=== PATIENT | female | born 1965 | race Caucasian/White ===

== ENCOUNTER 2019-01-12 18:45 | Inpatient (IN) | payer MEDICAID, MEDICARE ==
[~2019-01-12] VITALS: Ht 175.3 cm; Wt 96.4 kg
[2019-01-12] MEDS ORDERED: SODIUM CHLORIDE 0.9% 1,000 ML IV ONE (19:00)
[2019-01-12] MEDS ORDERED: MORPHINE SULFATE 4 MG/ML SYR/VIAL IV ONE (19:15)
[2019-01-12] MEDS ORDERED: ONDANSETRON HCL 4 MG/2 ML VIAL IV ONE (19:15)
[2019-01-12 19:17] LABS: Basophils # (auto) 0.1 uL; Basophils % (auto) 1.3 % (0.0-2.0); Eosinophils # (auto) 0.2 uL; Eosinophils % (auto) 2.3 % (0.0-7.0); Hematocrit 40.6 % (36.0-46.0); Hemoglobin 13.8 g/dL (12.2-16.2); Lymphocytes # (auto) 2.6 uL; Lymphocytes % (auto) 25.5 % (10.0-50.0); Mean Corpuscular Hgb Conc. 33.9 g/dL (32.0-36.0); Mean Corpuscular Volume 100.2 fL (80.0-100.0); Monocytes # (auto) 0.9 uL; Monocytes % (auto) 8.4 % (0.0-12.0); Neutrophils # (auto) 6.5 uL; Neutrophils % (auto) 62.5 % (37.0-80.0); Nucleated Red Blood Cells % 0.1 %; Platelet Count (auto) 233 10^3/uL (140-450); Red Blood Cells 4.05 10^6/uL (4.0-5.20); Red Cell Distribution Width 14.1 % (11.8-14.3); White Blood Cell 10.3 10^3/uL (4.4-10.8)
[2019-01-12 19:37] LABS: Calcium 9.1 mg/dL (8.5-10.1); Potassium 3.2 mmol/L (3.5-5.1)
[2019-01-12 19:39] LABS: BUN/Creatinine Ratio 15.3
[2019-01-12 19:42] LABS: Bilirubin, Total 0.4 mg/dL (0.2-1.0); Total Protein 7.5 g/dL (6.4-8.2)
[2019-01-12] MEDS ORDERED: HYDROmorphone HCL 2 MG/ML VL IV ONE ×2 (20:00→21:30)
[2019-01-12] MEDS ORDERED: HYDROcodone-ACET 5/325MG TAB PO PRN (23:15)
[2019-01-12] MEDS ORDERED: ACETAMINOPHEN 500 MG TAB PO PRN (23:15)
[2019-01-12] MEDS ORDERED: DOCUSATE SOD 100 MG CAP PO PRN (23:15)
[2019-01-12] MEDS: SODIUM CHLORIDE 0.9% 1,000 ML IV SCH (23:15)
[2019-01-12] MEDS ORDERED: TEMAZEPAM 15 MG CAP PO PRN (23:15)
[2019-01-12 23:53] LABS: Basophils # (auto) 0.1 uL; Basophils % (auto) 0.6 % (0.0-2.0); Eosinophils # (auto) 0 uL; Eosinophils % (auto) 0.3 % (0.0-7.0); Hematocrit 40.6 % (36.0-46.0); Hemoglobin 13.6 g/dL (12.2-16.2); Lymphocytes # (auto) 1.1 uL; Lymphocytes % (auto) 9.5 % (10.0-50.0); Mean Corpuscular Hemoglobin 33.1 pg (28.0-32.0); Mean Corpuscular Hgb Conc. 33.4 g/dL (32.0-36.0); Mean Corpuscular Volume 99.3 fL (80.0-100.0); Monocytes # (auto) 0.5 uL; Monocytes % (auto) 4.5 % (0.0-12.0); Neutrophils # (auto) 9.6 uL; Neutrophils % (auto) 85.1 % (37.0-80.0); Platelet Count (auto) 230 10^3/uL (140-450); Red Blood Cells 4.09 10^6/uL (4.0-5.20); Red Cell Distribution Width 14.4 % (11.8-14.3); White Blood Cell 11.3 10^3/uL (4.4-10.8)
[2019-01-13] VITALS (7 sets, daily range): BP systolic 109–132; BP diastolic 51–80
[2019-01-13 00:07] LABS: Anion Gap 7 (5-15); Carbon Dioxide 25 mmol/L (21-32); Chloride 108 mmol/L (98-107); Potassium 3.8 mmol/L (3.5-5.1); Sodium 140 mmol/L (136-145)
[2019-01-13 00:08] LABS: BUN/Creatinine Ratio 18.2; Blood Urea Nitrogen 18 mg/dL (7-18); Calcium 9.8 mg/dL (8.5-10.1); GFR African American 75 mL/min; GFR Non-African American 62 mL/min; Glucose 148 mg/dL (74-106)
--- NOTE | 2019-01-13 00:49 | NUR ---
RECEIVED PT TO RM 294B, ORIENTED TO ROOM AND ROUTINES, DISCUSSED PLAN OF CARE, PT AGREEABLE, NO COMPLAINTS VOICED AT THIS TIME, ADMISSION ASSESSMENT DONE, 4 P'S ADDRESSED, BED IN LOW POSITION, SR X 2 UP, CALL LIGHT WITHIN REACH, NO ACUTE DISTRESS NOTED.
[2019-01-13] MEDS: HYDROmorphone HCL 2 MG/ML VL IV PRN ×4 (03:07→22:32)
--- NOTE | 2019-01-13 07:30 | NUR ---
Opening Shift Note Assuming care of patient at this time. Patient is awake and alert. Patient denies pain at this time. Patient shows no signs or symptoms of distress at this time. Bed is locked and lowered with side rails up x2. Instructed patient on the plan of care for today and to call for assistance. Call light within reach. Will continue to round hourly and as needed.
--- NOTE | 2019-01-13 07:33 | NUR ---
PT RESTING IN BED, NO COMPLAINTS VOICED, NO ACUTE DISTRESS NOTED, BED IN LOW POSITION, SR X 2 UP, REPORT GIVEN TO MATHEUS VIDALES.
--- NOTE | 2019-01-13 08:20 | NUR ---
Call to dietary Call to dietary at this time. Patient is requesting a yogurt. Dietary will send up yogurt for patient.
--- NOTE | 2019-01-13 08:20 | NUR ---
Headache Patient is complaining of a headache at this time. Patient states that he does not want to take [place] because she has a tendency to become addicted. Will administer Tylenol as ordered.
[2019-01-13] MEDS: PANTOPRAZOLE 40 MG TAB PO SCH (08:26)
--- NOTE | 2019-01-13 08:45 | NUR ---
Patient complaining of pain Patient is complaining of pain at this time. Informed patient that her pain medication, dilaudid, is not due. Educated patient on frequency of pain medication ordered. Patient verbalized understanding Will administer per doctor's orders.
[2019-01-13] MEDS: ONDANSETRON HCL 4 MG/2 ML VIAL IV PRN ×3 (10:03→22:33)
--- NOTE | 2019-01-13 11:11 | NUR ---
Rounds Patient is resting comfortably in bed with eyes closed. Medication for both pain and nausea appear to have resolved patient's symptoms. at bedside.
[2019-01-13] MEDS: SODIUM CHLORIDE 0.9% 1,000 ML IV SCH (12:24)
--- NOTE | 2019-01-13 13:19 | NUR ---
Re: Urology Consult Dr. Tesfaye discussing plan of care with this RN. Patient can be discharged and taken care of electively. Patient is clear for discharge.
--- NOTE | 2019-01-13 15:40 | NUR ---
at bedside Dr. Ham at bedside discussing plan of care with patient and family.
[2019-01-13] MEDS ORDERED: cefTRIAXone 1GM/50ML D5W 50 ML IV ONE (15:45)
[2019-01-13] MEDS ORDERED: LOSA-39 PO (17:41)
[2019-01-13] MEDS ORDERED: HYDR25TA4 PO (17:41)
[2019-01-13] MEDS ORDERED: AML5T PO (17:41)
[2019-01-13] MEDS ORDERED: ASPI-404 PO (17:41)
--- NOTE | 2019-01-13 18:45 | NUR ---
Closing Shift Note Patient resting in bed with her eyes closed. Patient shows no signs or symptoms of distress. Patient does not appear to be in any pain. Will endorse care to the sr community manager RN.
--- NOTE | 2019-01-13 19:25 | NUR ---
Opening Shift Note Assuming care of patient at this time. Patient is awake and alert, resting in bed comfortably. Patient denies pain at this time. Patient shows no signs or symptoms of distress at this time. Bed is locked and lowered with side rails up x2. Instructed patient on the plan of care for today and to call for assistance. Call light within reach. Will continue to round hourly and as needed.
[2019-01-13 20:56] LABS: Urine Bacteria NONE SEEN /hpf (None Seen); Urine Blood TRACE /uL (Negative); Urine Mucus FEW (None Seen); Urine WBC 7 /hpf (0 - 5)
--- NOTE | 2019-01-14 01:00 | NUR ---
ROUNDS PATIENT ASSISTED UP TO RESTROOM, GAIT STEADY. DENIES ANY PAIN OR DISCOMFORT. WILL CONTINUE TO ROUND Q1H AND PRN.
[2019-01-14] MEDS: SODIUM CHLORIDE 0.9% 1,000 ML IV SCH (02:05)
[2019-01-14 04:57] VITALS: BP 110/61
[2019-01-14 06:50] LABS: Basophils # (auto) 0.1 uL; Eosinophils # (auto) 0.2 uL; Monocytes # (auto) 0.5 uL; Red Blood Cells 3.96 10^6/uL (4.0-5.20)
[2019-01-14 06:54] LABS: Basophils % (auto) 0.9 % (0.0-2.0); Eosinophils % (auto) 2.5 % (0.0-7.0); Hematocrit 39.8 % (36.0-46.0); Hemoglobin 13.6 g/dL (12.2-16.2); Lymphocytes % (auto) 25.6 % (10.0-50.0); Mean Corpuscular Hemoglobin 34.4 pg (28.0-32.0); Mean Corpuscular Hgb Conc. 34.2 g/dL (32.0-36.0); Mean Corpuscular Volume 100.6 fL (80.0-100.0); Monocytes % (auto) 6.9 % (0.0-12.0); Neutrophils % (auto) 64.1 % (37.0-80.0); Platelet Count (auto) 208 10^3/uL (140-450); Red Cell Distribution Width 13.8 % (11.8-14.3); White Blood Cell 7.8 10^3/uL (4.4-10.8)
[2019-01-14 06:59] LABS: INR 0.95 (0.9-1.15)
[2019-01-14 07:07] LABS: Calcium 8.4 mg/dL (8.5-10.1); Potassium 3.9 mmol/L (3.5-5.1)
[2019-01-14 07:14] LABS: Albumin 3.1 g/dL (3.4-5.0); BUN/Creatinine Ratio 14.1; Bilirubin, Total 0.5 mg/dL (0.2-1.0); Total Protein 6.7 g/dL (6.4-8.2)
[2019-01-14 08:00] VITALS: BP 123/83
[2019-01-14] MEDS: PANTOPRAZOLE 40 MG TAB PO SCH (08:02)
[2019-01-14] MEDS ORDERED: cefTRIAXone 1GM/50ML D5W 50 ML IV SCH (09:00)
[2019-01-14] MEDS: HYDROmorphone HCL 2 MG/ML VL IV PRN (09:17)
[2019-01-14] MEDS: ONDANSETRON HCL 4 MG/2 ML VIAL IV PRN (09:27)
[2019-01-14 12:00] VITALS: BP 132/69
[2019-01-14] MEDS ORDERED: OXYCODONE W/ ACETAMINOPHEN 5/325MG TABLET PO PRN (12:30)
[2019-01-14 15:42] VITALS: BP 132/69
--- NOTE | 2019-01-14 15:51 | NUR ---
STARTED ON PERCOCET PRIOR TO DISCHARGE. WILL WAIT IF EFFECTIVE IN MANAGING PAIN. PATIENT LEFT TO FILL DISCHARGE PRESCRIPTIONS.
[2019-01-14 17:00] VITALS: BP 129/64
== END 2019-01-14 18:15 | disposition home or self-care (01) | DRG 690 ==
LOC: ER 18:46 → OVERFLOW 18:47 → WEST WING 23:45
PROVIDERS: ADMIT Nurse Practitioner Family; ATTEND Internal Medicine
DX: N13.6 Pyonephrosis (principal); R65.10 Systemic inflammatory response syndrome (SIRS) of non-infectious origin without acute organ dysfunction; I12.9 Hypertensive chronic kidney disease with stage 1 through stage 4 chronic kidney disease, or unspecified chronic kidney disease; N17.0 Acute kidney failure with tubular necrosis; N18.9 Chronic kidney disease, unspecified; K76.0 Fatty (change of) liver, not elsewhere classified; R73.9 Hyperglycemia, unspecified; E74.39 Other disorders of intestinal carbohydrate absorption; K80.20 Calculus of gallbladder without cholecystitis without obstruction; Z82.49 Family history of ischemic heart disease and other diseases of the circulatory system; Z83.3 Family history of diabetes mellitus; Z87.442 Personal history of urinary calculi; Z90.49 Acquired absence of other specified parts of digestive tract
CPT/HCPCS: 36415; 71045; 74176; 80048; 80053; 81001; 83036; 84443; 85025; 85610; 87086; 93005; 94761; 96361; 96374; 96375; 96376; G0378; J0696; J2405